=== PATIENT | female | born 1985 | race Caucasian/White ===

== ENCOUNTER 2023-10-05 20:51 | Outpatient (CLI) | payer MEDICAID, SELFPAY | END 2023-10-05 20:52 | disposition home or self-care (01) | LOC: SLEEP 20:57 | PROVIDERS: Visit Provider Internal Medicine | DX: G47.33 Obstructive sleep apnea (adult) (pediatric) (principal); G25.81 Restless legs syndrome | CPT/HCPCS: 95810 ==